=== PATIENT | female | born 1950 | race Two or more races ===

== ENCOUNTER 2017-12-09 13:34 | Outpatient (CLI) | payer OTHER | END 2017-12-09 13:41 | disposition home or self-care (01) | LOC: MAMO-SONO 13:34 | DX: Z12.31 Encounter for screening mammogram for malignant neoplasm of breast (principal); Z87.898 Personal history of other specified conditions; R92.0 Mammographic microcalcification found on diagnostic imaging of breast; N63.10 Unspecified lump in the right breast, unspecified quadrant; N63.11 Unspecified lump in the right breast, upper outer quadrant ==